=== PATIENT | male | born 1980 | race Asian ===

== ENCOUNTER 2024-05-29 23:31 | Emergency (ER) | payer BC, SELFPAY ==
[2024-05-29 23:45] VITALS: BP 134/85; PULSE 63; RESP 14; TEMP 36.6; O2SAT 100
--- NOTE | 2024-05-29 23:47 | ECG_ITS ---
Test Date: 2024-05-29 23:37:08 Measurements Intervals [place] Rate: 63 P: 77 ID: [id number] QRS: 73 QRSD: 93 T: 61 QT: 393 QTc: 405 Interpretive Statements SINUS RHYTHM POSSIBLE LEFT ATRIAL ENLARGEMENT [-0.1mV P WAVE IN V1/V2] No previous ECG available for comparison Electronically Signed On 05-30-2024 10:55:30 CDT by Mariposa Bateman M.D.
--- NOTE | 2024-05-30 01:44 | PC.NURSE ---
Patient reports pain is gone and is going home, will return if pain returns or worsens.
== END 2024-05-30 01:50 | disposition left against medical advice (07) ==
LOC: ANHED 05-30 02:02
PROVIDERS: Emergency Provider Student in an Organized Health Care Education/Training Program; PCP Internal Medicine
DX: R07.2 Precordial pain (principal)
CPT/HCPCS: 93005; 99199